=== PATIENT | male | born 1945 | race Caucasian/White ===

== ENCOUNTER → 2023-12-20 | Outpatient (CLI) | payer MEDICARE, BC, SELFPAY ==
--- NOTE | 2023-12-20 07:15 | XR_ITS ---
Examination: Ultrasound soft tissue face TECHNIQUE: multiple high-resolution sonographic images soft tissue anterior to the right temporomandibular joint Exam date and time: 2023 0749 hours INDICATIONS: History skin cancer post surgery several years ago, patient states swelling and pain one year in the soft tissue anterior to the right temporomandibular joint FINDINGS: Soft tissue mass at the area concern with mild vascularity 15 x 15 x 13 mm IMPRESSION: Soft tissue vascular mass at the area concern 15 x 15 x 13 mm, differential would include soft tissue tumor, enlarged pathologic lymph node Recommend CT soft tissue neck post intravenous contrast follow-up
[2023-12-20 08:33] LABS: Basophils # (Auto) 0.1 Thou/mm3 (0.0-0.2); Basophils % (Auto) 1 % (0-2.5); Eosinophils # (Auto) 0.3 Thou/mm3 (0.0-0.5); Eosinophils % (Auto) 4 % (0-10); Hemoglobin 14.6 g/dL (13.5-16.0); Immature Granulocytes % (Auto) 0 % (0-0); Immature Granulocytes Auto 0.01 Thou/mm3 (0.00-0.00); Lymphocytes # (Auto) 2.7 Thou/mm3 (1.0-4.8); Lymphocytes % (Auto) 42 % (10-50); Mean Corpuscular Hemoglobin 31.8 pg (25.0-35.0); Mean Corpuscular Volume 94 fL (80-100); Monocytes # (Auto) 0.4 Thou/mm3 (0.0-0.8); Monocytes % (Auto) 6 % (0-12); Neutrophils % (Auto) 47 % (37-80); Nucleated Red Blood Cell % 0 /100 WBC (0); Platelet Count 199 Thou/mm3 (140-440); RDW Standard Deviation 40.6 fL (35.1-43.9); Red Blood Count 4.59 Miln/mm3 (4.50-5.90); White Blood Count 6.4 Thou/mm3 (3.8-10.6)
[2023-12-20 08:56] LABS: Collection Type, Urine Clean Catch; WBC,Urine 0 /hpf (0-5)
[2023-12-20 09:01] LABS: Prostate Specific Antigen 3.38 ng/mL (0-4.00)
[2023-12-20 09:04] LABS: Alanine Aminotransferase 40 U/L (10-49); Albumin, Serum 4.3 gm/dL (3.4-4.8); Albumin/Globulin Ratio 1.5 (1.2-2.2); Alkaline Phosphatase 93 U/L (46-116); Anion Gap 5 (7-16); Aspartate Amino Transferase 27 U/L (0-34); BUN/Creatinine Ratio 13 Ratio (12-20); Bilirubin,Total 0.8 mg/dL (0.3-1.2); Blood Urea Nitrogen 10 mg/dL (9-23); Calcium 9.8 mg/dL (8.3-10.6); Calcium (Corrected) 9.8 mg/dL (8.5-10.1); Carbon Dioxide 30.5 mMol/L (20.0-31.0); Cardiac Risk Estimate 3.3 RATIO (4.0-6.7); Chloride 104 mMol/L (98-107); Cholesterol 155 mg/dL (132-200); Creatinine (Component) 0.8 mg/dL (0.6-1.3); Globulin 2.8 gm/dL (2.3-3.5); Glucose 103 mg/dL (74-106); HDL Cholesterol 47 mg/dL (40-60); LDL Cholesterol,Calculated 90 mg/dL (0-130); Osmolality,Calculated 276 (275-295); Potassium 4.1 mMol/L (3.4-5.1); Sodium 139 mMol/L (136-145); Thyroid Stimulating Hormone 1.36 uIU/mL (0.55-4.78); Total Protein 7.1 gm/dL (5.7-8.2); Triglycerides 91 mg/dL (30-150); eGFR > 60 See Note
[2023-12-20 09:39] LABS: Bilirubin,Urine Negative (Negative); Blood,Urine Negative (Negative); Clarity,Urine Clear (Clear/Hazy); Color,Urine Yellow (Lt Yel-Yel); Glucose, Urine Negative (Negative); Ketones,Urine Negative (Negative); Leukocyte Esterase,Urine Negative (Negative); Nitrite,Urine Negative (Negative); PH,Urine 7.5 (5.0-7.0); Protein,Urine Trace (Neg - Trace); RBC,Urine 2 /hpf (0-3); Specific Gravity,Urine 1.019 (1.001-1.035); Squamous Epithelial Cell,Urine < 1 /hpf (0-5); Urobilinogen,Urine Negative mg/dL (0.0-1.0)
== END | disposition home or self-care (01) ==
LOC: COPL 07:18
PROVIDERS: PCP Family Medicine; Referring Provider General Practice; Visit Provider Radiology Diagnostic Radiology
DX: R22.9 Localized swelling, mass and lump, unspecified (principal); Z00.00 Encounter for general adult medical examination without abnormal findings; I11.9 Hypertensive heart disease without heart failure; N40.0 Benign prostatic hyperplasia without lower urinary tract symptoms
CPT/HCPCS: 36415; 76536; 80053; 80061; 81001; 84153; 84443; 85025

== ENCOUNTER → 2024-05-16 | Outpatient (CLI) | payer MEDICARE, BC, SELFPAY ==
[2024-05-16 11:26] LABS: Basophils # (Auto) 0.1 Thou/mm3 (0.0-0.2); Basophils % (Auto) 1 % (0-2.5); Eosinophils # (Auto) 0.3 Thou/mm3 (0.0-0.5); Eosinophils % (Auto) 4 % (0-10); Hematocrit 42.4 % (41.0-53.0); Hemoglobin 14.4 g/dL (13.5-16.0); Immature Granulocytes % (Auto) 0 % (0-0); Immature Granulocytes Auto 0.02 Thou/mm3 (0.00-0.00); Lymphocytes # (Auto) 2.6 Thou/mm3 (1.0-4.8); Lymphocytes % (Auto) 36 % (10-50); Mean Corpuscular Hemoglobin 31.1 pg (25.0-35.0); Mean Corpuscular Volume 92 fL (80-100); Monocytes # (Auto) 0.5 Thou/mm3 (0.0-0.8); Monocytes % (Auto) 7 % (0-12); Neutrophils # (Auto) 3.8 Thou/mm3 (1.8-7.7); Neutrophils % (Auto) 52 % (37-80); Nucleated Red Blood Cell % 0 /100 WBC (0); Platelet Count 220 Thou/mm3 (140-440); RDW Standard Deviation 40.2 fL (35.1-43.9); Red Blood Count 4.63 Miln/mm3 (4.50-5.90); White Blood Count 7.3 Thou/mm3 (3.8-10.6)
[2024-05-16 12:03] LABS: Anion Gap 7 (7-16); BUN/Creatinine Ratio 16 Ratio (12-20); Blood Urea Nitrogen 13 mg/dL (9-23); Calcium 9.8 mg/dL (8.3-10.6); Carbon Dioxide 30.1 mMol/L (20.0-31.0); Chloride 102 mMol/L (98-107); Creatinine (Component) 0.8 mg/dL (0.6-1.3); Glucose 104 mg/dL (74-106); Osmolality,Calculated 277 (275-295); Sodium 139 mMol/L (136-145); eGFR > 60 See Note
== END | disposition home or self-care (01) ==
PROVIDERS: PCP Family Medicine; Referring Provider Family Medicine; Visit Provider Dentist
DX: E07.9 Disorder of thyroid, unspecified (principal)
CPT/HCPCS: 36415; 80048; 85025

== ENCOUNTER 2024-08-02 09:56 | Outpatient (RCR) | payer MEDICARE, BC, SELFPAY ==
--- NOTE | 2024-08-02 12:35 | CTCCONSULT_ITS ---
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 Cleveland Wheatley MD Referring physician. Antoine Beltran MD [facility] Reason consultation. Patient with squamous SCCA right face status post right facial resection referred for postop radiation therapy. 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 Patient reportedly had Mohs surgery for skin cancer at this facial site in the past. On 07/04/2024 patient underwent resection of the right facial mass with superficial parotidectomy and total thyroidectomy and right neck dissection performed at [facility] 07/04/2024. The thyroid gland had multifocal tumor site left superior and left inferior lobes tumor size 0.3 cm papillary carcinoma classic subtype. All margins negative. pT1a pN0. Right facial resection revealed invasive squamous cell CA keratoacanthoma type 4.8 cm in greatest dimension. Margins negative though close at less than 0.5 mm from nearest deep margin and less than 1 mm from the next nearest margin. There was no evidence of perineural invasion or angiolymphatic invasion. According to comment by pathologist there were no prior biopsies and the path was consistent with skin base neoplasm and not typically seen in parotid gland. A total of 33 lymph nodes from right neck various levels facial node had no mets. Patient was recommended for radiation therapy to the skin CA right face. Patient states that he will be returning for check of facial graft following surgery next week. Past Medical History: High blood pressure prostatism ulcer influenza mumps allergies has pacemaker Meds. Amlodipine tamsulosin hydrochlorothiazide finasteride atenolol Family history. Father had kidney cancer Brother had lung cancer Social History: Patient has worked as artificially inseminated for 40 years Review of Systems: Has no drainage from the right facial surgery. Physical Exam: General: Well-appearing gentleman in no acute distress HEENT: Large graft noted involving much of the right face with some drainage noted in the lower portion; neck nodes not felt. Right neck dissection and thyroidectomy scar healing well. CV: Chest clear to auscultation heart regular rate and rhythm ABD: Soft no Ruggerio tenderness EXT: No signs clubbing or edema. Assessment:1. Squamous cell CA involving the right face; appears to be skin rather than parotid according to clinical evaluation and pathological studies. 2. Surgical resection 07/04/2024 4.8 cm with close margin < 0.5 millimeter from nearest deep margin and less than 1 mm from the next nearest margin 3. Total thyroidectomy for (0.3cm) [id number] papillary carcinoma classic subtype. 4. Local radiation therapy to the right face region recommended. 5. Approximately 5400 cGy should adequately treat areas with close or uncertain margins postop. 6 Patient with pacemaker will get this checked prior to radiation therapy.. 7. CT simulation to map out the anatomical boundaries of this patient will be ordered. 8. Surgical wound not completely healed patient will be seeing Dr. Devin Kirkpatrick [facility] in the next few days. Will see patient afterward. 9. Side effects explained. Thank you very much for allowing me to evaluate and manage this patient. Cc: Antoine Beltran DDS, MD, [facility] Kaya Wheatley MD Electronically signed by: Ga Montano MD, EMI 08/02/2024 12:33 PM
--- NOTE | 2024-08-02 12:36 | CTCTXPLN_ITS ---
[facility] [address] [place], [place] [address] Physician Clinical Treatment Planning Note Date of Service: 08/02/2024 Name: FLYNN BUITRAGO : 1945 The patient has agreed to proceed with Radiation therapy. Tests and supporting medical records were interpreted to assist in defining the tumor location and extent of disease. Further imaging will be necessary to contour and delineate the volume to which the XRT will be provided. A. Treatment Intent: Curative B. Modality: 6 MV C. Requested Technique: VMAT D. Treatment Site: Right face E. Critical structures to be contoured on plan: F. In order to accomplish this plan, I am ordering/Prescribing the followin. Simulations (s) will be performed to accomplish a reproducible treatment position, to determine optimal treatment portals/beam arrangements, to design beam modifying devices and verify treatment portals on patient prior to the commencement of Radiation Therapy. Right face 2. Devices; for immobilization and beam shapin. CT Guidance for placement of XRT russ Scan area: 4. Portal images Frequency: 5. Invivo transit dose measurement once per week on all VMAT patients. 6. Special Physics Consult Requested for: 7. Other requests: G. Dose Objectives: Electronically signed by: Ga Montano M.D. 08/02/2024 12:34 PM
--- NOTE | 2024-08-02 12:38 | CTCTXPLNST_ITS ---
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 Pt Treatment Intent: curative palliative other: Stage: Procedure CPT # Ordered Spec. Procedure 03611 Melgoza Complex (set-up) 51274 Head and neck/ Hema R face scar 1 Melgoza Simple 35159 IMRT Plan 25780 1 MLC Devices VMAT 34424 3 Melgoza 3 D 39548 TRTMT dev Complex 17112 Aqua Plast 1 TRTMT dev simple 69046 Basic Kurtis 60563 6 Special Dosimetry 96089 Spec Physics 01420 Port Films 58716 SRS Cranial/1FX 09049 SBR 5 FX or Less /ex: 5 = 5 fx 62651 IMRT Simple 37633 5400 30 IMRT Complex 16453 IGRT 58116 25 Rad del com 6- 40233 Rad del com 01-03 71481 Cont Med Physics 37735 7 Treatment Planning 99119 1 Rad del com 20 mev 48453 Rad del inter 07-25 04350 Rad del inter 01-03 15448 Rad del simple 07-25 89823 Rad del simple 01-03 09238 Special Port Plan 59277 TRTMT dev inter 58207 Isodose Complex 06742 Isodose simple 81073 Resp Motion Mgmt Simulation 74958 Placement of Fiducial Markers 75025 Electronically Signed By: Ga Montano MD, CARLAR 08/02/2024 12:36 PM
== END 2024-08-14 23:59 | disposition home or self-care (01) ==
LOC: SCTC 09:56
PROVIDERS: PCP Family Medicine; Referring Provider Dentist; Visit Provider Radiology Therapeutic Radiology
DX: C44.329 Squamous cell carcinoma of skin of other parts of face (principal); C73 Malignant neoplasm of thyroid gland; E89.0 Postprocedural hypothyroidism
CPT/HCPCS: 99213; G0463

== ENCOUNTER → 2024-08-15 | Outpatient (CLI) | payer MEDICARE, BC, SELFPAY ==
[2024-08-15 15:02] LABS: Collection Type, Urine Clean Catch
[2024-08-15 15:54] LABS: Basophils # (Auto) 0.1 Thou/mm3 (0.0-0.2); Basophils % (Auto) 1 % (0-2.5); Eosinophils # (Auto) 0.3 Thou/mm3 (0.0-0.5); Eosinophils % (Auto) 3 % (0-10); Hematocrit 37.2 % (41.0-53.0); Hemoglobin 12.7 g/dL (13.5-16.0); Immature Granulocytes Auto 0.03 Thou/mm3 (0.00-0.00); Lymphocytes # (Auto) 2.5 Thou/mm3 (1.0-4.8); Lymphocytes % (Auto) 30 % (10-50); Mean Corpuscular HGB Conc 34.1 g/dl (31.0-37.0); Mean Corpuscular Hemoglobin 32.2 pg (25.0-35.0); Mean Corpuscular Volume 94 fL (80-100); Monocytes # (Auto) 0.4 Thou/mm3 (0.0-0.8); Monocytes % (Auto) 5 % (0-12); Neutrophils # (Auto) 5.1 Thou/mm3 (1.8-7.7); Neutrophils % (Auto) 61 % (37-80); Nucleated Red Blood Cell # 0.00 Thou/mm3 (0.00-0.00); Nucleated Red Blood Cell % 0 /100 WBC (0); Platelet Count 275 Thou/mm3 (140-440); RDW Standard Deviation 43.2 fL (35.1-43.9); Red Blood Count 3.95 Miln/mm3 (4.50-5.90); White Blood Count 8.4 Thou/mm3 (3.8-10.6)
[2024-08-15 15:58] LABS: Bilirubin,Urine Negative (Negative); Blood,Urine Negative (Negative); Clarity,Urine Clear (Clear/Hazy); Color,Urine Lt-Yellow (Lt Yel-Yel); Glucose, Urine Negative (Negative); Ketones,Urine Negative (Negative); Leukocyte Esterase,Urine Negative (Negative); Nitrite,Urine Negative (Negative); PH,Urine 6.0 (5.0-7.0); Protein,Urine Negative (Neg - Trace); RBC,Urine 2 /hpf (0-3); Specific Gravity,Urine 1.016 (1.001-1.035); Squamous Epithelial Cell,Urine < 1 /hpf (0-5); Urobilinogen,Urine Negative mg/dL (0.0-1.0); WBC,Urine < 1 /hpf (0-5)
[2024-08-15 16:05] LABS: Prostate Specific Antigen 3.17 ng/mL (0-4.00)
[2024-08-15 16:11] LABS: Alanine Aminotransferase 21 U/L (10-49); Albumin, Serum 4.0 gm/dL (3.4-4.8); Albumin/Globulin Ratio 1.6 (1.2-2.2); Alkaline Phosphatase 76 U/L (46-116); Anion Gap 6 (7-16); Aspartate Amino Transferase 19 U/L (0-34); BUN/Creatinine Ratio 16 Ratio (12-20); Bilirubin,Total 0.4 mg/dL (0.3-1.2); Blood Urea Nitrogen 13 mg/dL (9-23); Calcium 9.0 mg/dL (8.3-10.6); Calcium (Corrected) 9.0 mg/dL (8.5-10.1); Carbon Dioxide 32.1 mMol/L (20.0-31.0); Chloride 102 mMol/L (98-107); Creatinine (Component) 0.8 mg/dL (0.6-1.3); Globulin 2.5 gm/dL (2.3-3.5); Glucose 105 mg/dL (74-106); Osmolality,Calculated 279 (275-295); Potassium 4.3 mMol/L (3.4-5.1); Sodium 140 mMol/L (136-145); Thyroid Stimulating Hormone 7.32 uIU/mL (0.55-4.78); Total Protein 6.5 gm/dL (5.7-8.2); eGFR > 60 See Note
== END | disposition home or self-care (01) ==
LOC: COPL 13:33
PROVIDERS: PCP Family Medicine; Referring Provider Family Medicine; Visit Provider Family Medicine
DX: N40.0 Benign prostatic hyperplasia without lower urinary tract symptoms (principal); I10 Essential (primary) hypertension; I25.118 Atherosclerotic heart disease of native coronary artery with other forms of angina pectoris
CPT/HCPCS: 36415; 80053; 81001; 84153; 84443; 85025

== ENCOUNTER 2024-09-14 07:59 | Outpatient (RCR) | payer MEDICARE, BC, SELFPAY ==
--- NOTE | 2024-08-31 15:15 | CTCSNOTE_ITS ---
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 (C) CT slices included R face (D) VMAT Will be needed for maximum sparing of adjacent normal critical structures. (E) Patient tolerated the simulation well and left the room in good condition. Electronically signed by: Ga Montano MD, EMI 08/31/2024 3:13 PM
== END 2024-09-14 23:59 | disposition home or self-care (01) ==
LOC: SCTC 07:59
PROVIDERS: PCP Family Medicine; Referring Provider Radiology Therapeutic Radiology; Visit Provider Radiology Therapeutic Radiology
DX: Z51.0 Encounter for antineoplastic radiation therapy (principal); C44.329 Squamous cell carcinoma of skin of other parts of face
CPT/HCPCS: 77014; 77290; 77300; 77301; 77334; 77338; 77385

== ENCOUNTER 2024-10-13 07:49 | Outpatient (RCR) | payer MEDICARE, BC, SELFPAY | END 2024-10-15 23:59 | disposition home or self-care (01) | LOC: SCTC 07:49 | PROVIDERS: Referring Provider Radiology Therapeutic Radiology; Visit Provider Radiology Therapeutic Radiology | DX: Z51.0 Encounter for antineoplastic radiation therapy (principal); C44.329 Squamous cell carcinoma of skin of other parts of face; L59.8 Other specified disorders of the skin and subcutaneous tissue related to radiation; Y84.2 Radiological procedure and radiotherapy as the cause of abnormal reaction of the patient, or of later complication, without mention of misadventure at the time of the procedure; C73 Malignant neoplasm of thyroid gland; E89.0 Postprocedural hypothyroidism | CPT/HCPCS: 77336; 77385 ==

== ENCOUNTER → 2024-11-08 | Outpatient (CLI) | payer MEDICARE, BC, SELFPAY ==
--- NOTE | 2024-11-08 10:49 | XR_ITS ---
Examination: Lumbar spine, 5 views Technique: Lumbar spine AP, lateral, coned lateral lower lumbar spine, bilateral obliques 5 views Exam date and time: November 08, 2024, 1107 hours INDICATIONS: Low back pain beginning 3 weeks ago. FINDINGS: Severe osteopenia. No lumbar fracture. Moderate to advanced disc narrowing L5-S1. No spondylolisthesis. Mild lumbar spondylosis Diffuse facet arthropathy moderate IMPRESSION: Moderate to advanced degenerative disc disease L5-S1
== END | disposition home or self-care (01) ==
PROVIDERS: PCP Family Medicine; Referring Provider Radiology Therapeutic Radiology; Visit Provider Radiology Therapeutic Radiology
DX: M51.370 Other intervertebral disc degeneration, lumbosacral region with discogenic back pain only (principal); C44.329 Squamous cell carcinoma of skin of other parts of face
CPT/HCPCS: 72110

== ENCOUNTER → 2024-11-15 | Outpatient (CLI) | payer MEDICARE, BC, SELFPAY ==
[2024-11-15 13:34] LABS: Basophils # (Auto) 0.1 Thou/mm3 (0.0-0.2); Basophils % (Auto) 2 % (0-2.5); Eosinophils # (Auto) 0.3 Thou/mm3 (0.0-0.5); Eosinophils % (Auto) 5 % (0-10); Hematocrit 40.4 % (41.0-53.0); Hemoglobin 13.9 g/dL (13.5-16.0); Immature Granulocytes Auto 0.01 Thou/mm3 (0.00-0.00); Lymphocytes # (Auto) 1.8 Thou/mm3 (1.0-4.8); Lymphocytes % (Auto) 30 % (10-50); Mean Corpuscular HGB Conc 34.4 g/dl (31.0-37.0); Mean Corpuscular Hemoglobin 32.0 pg (25.0-35.0); Mean Corpuscular Volume 93 fL (80-100); Monocytes # (Auto) 0.4 Thou/mm3 (0.0-0.8); Monocytes % (Auto) 7 % (0-12); Neutrophils # (Auto) 3.4 Thou/mm3 (1.8-7.7); Neutrophils % (Auto) 57 % (37-80); Nucleated Red Blood Cell # 0.00 Thou/mm3 (0.00-0.00); Nucleated Red Blood Cell % 0 /100 WBC (0); Platelet Count 211 Thou/mm3 (140-440); RDW Standard Deviation 41.1 fL (35.1-43.9); Red Blood Count 4.34 Miln/mm3 (4.50-5.90); White Blood Count 6.1 Thou/mm3 (3.8-10.6)
[2024-11-15 13:57] LABS: Alanine Aminotransferase 24 U/L (10-49); Albumin, Serum 4.0 gm/dL (3.4-4.8); Albumin/Globulin Ratio 1.6 (1.2-2.2); Alkaline Phosphatase 62 U/L (46-116); Anion Gap 8 (7-16); Aspartate Amino Transferase 21 U/L (0-34); BUN/Creatinine Ratio 15 Ratio (12-20); Bilirubin,Total 0.7 mg/dL (0.3-1.2); Blood Urea Nitrogen 12 mg/dL (9-23); Calcium 8.8 mg/dL (8.3-10.6); Calcium (Corrected) 8.8 mg/dL (8.5-10.1); Carbon Dioxide 31.5 mMol/L (20.0-31.0); Chloride 102 mMol/L (98-107); Creatinine (Component) 0.8 mg/dL (0.6-1.3); Globulin 2.5 gm/dL (2.3-3.5); Glucose 103 mg/dL (74-106); Osmolality,Calculated 280 (275-295); Potassium 4.0 mMol/L (3.4-5.1); Sodium 141 mMol/L (136-145); Thyroid Stimulating Hormone 3.20 uIU/mL (0.55-4.78); Total Protein 6.5 gm/dL (5.7-8.2); eGFR > 60 See Note
== END | disposition home or self-care (01) ==
LOC: COPL 11:47
PROVIDERS: PCP Family Medicine; Referring Provider Family Medicine; Visit Provider Family Medicine
DX: E03.9 Hypothyroidism, unspecified (principal); I10 Essential (primary) hypertension; D64.9 Anemia, unspecified
CPT/HCPCS: 36415; 80053; 84443; 85025

== ENCOUNTER 2025-02-01 10:04 | Outpatient (RCR) | payer MEDICARE, BC, SELFPAY ==
--- NOTE | 2025-02-01 10:58 | CTCFLWUP_ITS ---
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 SCCA right face status post resection 07/04/2024. 4.8 cm with close margins. The area involved was the parotid region, and the pathologist felt that this was more likely skin based neoplasm than typical parotid primary.. 33 lymph nodes were negative for mets. pT1a thyroid carcinoma also removed. Local radiation therapy completed 5400 cGy in 10/24/2024. Patient is experiencing significant right sided pelvic pain. No sign of recurrence locally or in regional nodes. Will check PET scan and see him back in 3 months. Electronically signed by: Ga Montano M.D. 02/01/2025 10:55 AM
== END 2025-02-14 23:59 | disposition home or self-care (01) ==
LOC: SCTC 10:04
PROVIDERS: PCP Family Medicine; Referring Provider Family Medicine; Visit Provider Radiology Therapeutic Radiology
DX: C44.329 Squamous cell carcinoma of skin of other parts of face (principal); Z92.3 Personal history of irradiation
CPT/HCPCS: 99213; G0463